=== PATIENT | male | born 1960 | race Caucasian/White ===

== ENCOUNTER → 2018-11-18 | Outpatient (CLI) | payer OTHER ==
--- NOTE | 2018-11-18 15:32 | REP ---
Clinical: Left flank pain. Technique: Axial noncontrast images from the lung bases to the pubic symphysis with coronal and sagittal re-formations. Findings: Evaluation of the urinary tract system demonstrates mild chronic bilateral perinephric stranding along with nonobstructing intrarenal calculi measuring up to 3 mm in the right kidney and 3.5 mm in left kidney. No hydroureteronephrosis or obstructing ureteral calculi identified. Pelvis demonstrates mildly enlarged prostate gland with mass effect on the base of the bladder. Liver, spleen, pancreas, gallbladder, and bilateral adrenal glands are normal for noncontrast evaluation. The enteric system is without obstruction or acute inflammatory process. Pelvis demonstrates enlarged prostate gland with mass effect on the base of the bladder. Normal sigmoid colon. No pelvic fluid or ascites. No free air. No adenopathy. Atherosclerotic changes of the aorta and vasculature without aneurysm or dissection. Musculoskeletal structures intact. Lung bases are clear. Impression: 1. Few bilateral nonobstructing nephroliths. Electronically Signed by Kurtis Higginbotham MD 11/18/2018 03:22 P
== END ==
LOC: M RAD 07:11
PROVIDERS: ATTEND Student in an Organized Health Care Education/Training Program
DX: N20.0 Calculus of kidney (principal); Z87.442 Personal history of urinary calculi